=== PATIENT | male | born 1950 | race Caucasian/White ===

== ENCOUNTER 2018-12-10 17:12 | Inpatient (IN) | payer MEDICARE ==
[~2018-12-10] VITALS: Ht 172.7 cm; Wt 129.7 kg
--- OUTSIDE RECORDS SUMMARY | 2018-12-10 17:15 | XMS REPORT | Summary of Care ---
Author Author [facility] Address Unknown Phone Unavailable Encounter HQ [email or web address](FIN) [id number] Date(s): 03/06/16 - 03/06/16 [facility] [address] [facility], [address] [phone] Discharge Disposition: Home Attending Physician: Marilyn Braswell MD Vital Signs No data available for this section Problem List No data available for this section Allergies, Adverse Reactions, Alerts No data available for this section Medications No data available for this section Results No data available for this section Immunizations No data available for this section Procedures No data available for this section Social History No data available for this section Assessment and Plan No data available for this section
--- OUTSIDE RECORDS SUMMARY | 2018-12-10 17:16 | XMS REPORT | Summary of Care ---
Author Author Mary Cruz R.N. Unknown Address [facility] Phone Unavailable Care Team Providers Care Health Plan Advisor Name Role Phone EZEQUIEL SINCLAIR Unavailable Unavailable MONIKA Davis, ROSALVA Unavailable Unavailable DARRELL Davis, MYLES Unavailable Unavailable EUGENIO COLÓN [place], NICOLETTE Mckenzie Unavailable Unavailable EUGENIO Davis, NICOLETTE Unavailable Unavailable Nica COLÓN, Meghan Unavailable Unavailable Monika COLÓN, Rosalva Unavailable Unavailable Unavailable Unavailable Functional Status Name Dates Details Functional status health issues are not documented Status: Name Dates Details Cognitive status health issues are not documented Status: Problems Name Dates Details Testicular mass (608.89, N50.9) Status: Active Tinea corporis (110.5, B35.4) Status: Active Advance directive discussed with patient (V65.49, Z71.89) Status: Active Encounter for mini-mental status examination Status: Active Depression screening (V79.0, Z13.89) Status: Active At low risk for fall (V49.89, Z91.81) Status: Active Colonoscopy refused (V64.2, Z53.20) Status: Active Refused pneumococcal vaccine (V64.06, Z28.21) Status: Active Edema (782.3, R60.9) Status: Active Hospital discharge follow-up (V67.59, Z09) Status: Active Ischemic cardiomyopathy (414.8, I25.5) Status: Active Back muscle spasm (724.8, M62.830) Status: Active Morbid obesity (278.01, E66.01) Status: Active Status post myocardial infarction (412, I25.2) Status: Active Coronary artery disease (414.00, I25.10) Status: Active S/P coronary artery bypass graft x 4 (V45.81, Z95.1) Status: Active Open wound (879.8, T14.8XXA) Status: Active Aftercare following surgery (V58.89, Z48.89) Status: Active Pleural effusion (511.9, J90) Status: Active Hydrocele, left (603.9, N43.3) Status: Active Influenza vaccination declined (V64.06, Z28.21) Status: Active Pneumococcal vaccination declined (V64.06, Z28.21) Status: Active Diabetes mellitus (250.00, E11.9) Status: Active Laceration of lesser toe of left foot without damage to nail, foreign body presence unspecified, initial encounter (893.0, S91.115A) Status: Active HTN (hypertension) (401.9, I10) Status: Active Medications Name Dates Details Lancets Ultra Fine USE DIRECTED. Quantity: 100 RUEDA P.A., EZEQUIEL * Start : 11-Feb-2016 Active Aspirin 81 MG TABS TAKE 1 TABLET DAILY. * Quantity: 30 Refills: 0 RUEDA P.A., EZEQUIEL * Start : 14-Feb-2016 Active Atorvastatin Calcium 40 MG Oral Tablet TAKE 1 TABLET BY MOUTH EVERY DAYMUST HAVE VISIT * Quantity: 30 Refills: 5 MYLES RAMÍREZ M.D. * Start : 05-Jun-2016 Active DME Cardiac Rehab Phase II, 2 times a week, 36 sessionsDx.S/P PCI, CAD,LA,ISCHEMIC C ARDIOMYOPATHY * Quantity: 1 Refills: 0 MYLES RAMÍREZ M.D. * Start : 16-Jun-2016 Active Lisinopril 5 MG Oral Tablet TAKE 1 TABLET BY MOUTH AT BEDTIME * Quantity: 30 Refills: 5 MYLES RAMÍREZ M.D. * Start : 30-Jan-2017 Active Metoprolol Succinate ER 25 MG Oral Tablet Extended Release 24 Hour Take 1 tablet by mouth twice a day * Quantity: 60 Refills: 4 MYLES RAMÍREZ M.D. * Start : 10-Feb-2018 Active Clopidogrel Bisulfate 75 MG Oral Tablet TAKE 1 TABLET BY MOUTH EVERY DAY * Quantity: 30 Refills: 6 MYLES RAÍMREZ M.D. * Start : 16-Sep-2017 Active GlipiZIDE ER 5 MG Oral Tablet Extended Release 24 Hour TAKE 1 TABLET BY MOUTH DAILY WITH BREAKFAST * Quantity: 30 Refills: 3 ROSALVA FLORIAN M.D. * Start : 16-Apr-2017 Active BD Pen Needle Mini U/F 31G X 5 MM use as directed to inject insulin once daily * Quantity: 100 Refills: 1 MONIKA Davis, ROSALVA * Start : 16-Apr-2017 Active Bumetanide 1 MG Oral Tablet TAKE 3 TABLETS DAILY, 2 TABLETS IN THE MORNING AND 1 TABLET IN THEAFTERNOON * Quantity: 270 Refills: 3 MYLES RAMÍREZ M.D. * Start : 27-Apr-2017 Active Spironolactone 25 MG Oral Tablet TAKE 0.5 TABLET TWICE DAILY * Quantity: 30 Refills: 5 MYLES RAMÍREZ M.D. * Start : 27-Apr-2017 Active Tresiba FlexTouch 100 UNIT/ML Subcutaneous Solution Pen-injector inject 12 U SC once daily * Quantity: 1 Refills: 2 ROSALVA FLORIAN M.D. * Start : 15-Dec-2017 Active 5 x 3 ML Pen OneTouch Delica Lancets 33G check BG 2xs daily * Quantity: 100 Refills: 3 MONIKA Davis, ROSALVA * Start : 15-Dec-2017 Active OneTouch Verio In Vitro Strip check BG 2xs daily * Quantity: 100 Refills: 3 MONIKA Davis, ROSALVA * Start : 15-Dec-2017 Active Allergies and Adverse Reactions Name Dates Details No Known Allergies (Allergy) Status: Active Past Medical History Name Dates Details Coronary artery disease (414.00, I25.10) Status: Active HTN (hypertension) (401.9, I10) Status: Active Morbid obesity (278.01, E66.01) Status: Active S/P coronary artery bypass graft x 4 (V45.81, Z95.1) Status: Active Status post myocardial infarction (412, I25.2) Status: Active History of blood transfusion (V15.89, Z92.89) Status: Resolved Procedures Procedure Dates Details [QL] HEMOGLOBIN A1c Date: 15-Dec-2017 History of cardiac catheterization with stent placement Completed History of coronary artery bypass graft Completed History of hydrocele repair Completed Immunization Name Dates Details Immunizations not documented Family History Name Dates Details Family history of cardiac disorder (V17.49, Z82.49) Status: Active Name Dates Details Family history of cardiac disorder (V17.49, Z82.49) Status: Active Name Dates Details Family history of lung cancer (V16.1, Z80.1) Status: Active Family history of malignant neoplasm (V16.9, Z80.9) Status: Active Name Dates Details Family history of malignant neoplasm of brain (V16.8, Z80.8) Status: Active Family history of malignant neoplasm (V16.9, Z80.9) Status: Active Social History Name Dates Details - Status: Name Dates Details Never smoker Vital Signs Date Test Result Details No Known Vitals to report Results Date Description Value Details Results not documented Plan of Care Name Dates Details Planned Observations Planned Goals not documented Planned Encounters Appointment; ROSALVA FLORIAN M.D. On: 16-Mar-2018 10:00 Appointment; MYLES RAMÍREZ M.D. On: 28-Jun-2018 13:00 Instructions Name Dates Details Instructions not documented Encounters Appointment; EZEQUIEL RUEDA P.A. Encounter Diagnosis: Problem not documented On: 11-Feb-2016 9:30 Appointment; EZEQUIEL RUEDA P.A. Encounter Diagnosis: Problem not documented On: 14-Feb-2016 8:45 Appointment; KIARA BENJAMIN M.D. Encounter Diagnosis: Problem not documented On: 05-Mar-2016 12:30 Appointment; EZEQUIEL RUEDA P.A. Encounter Diagnosis: Problem not documented On: 13-Mar-2016 8:00 Appointment; EZEQUIEL RUEDA P.A. Encounter Diagnosis: Problem not documented On: 13-May-2016 8:00 Appointment; EDGARDO ALEXANDER P.A. Encounter Diagnosis: Problem not documented On: 10-Jun-2016 13:30 Appointment; MYLES RAMÍREZ M.D. Encounter Diagnosis: Problem not documented On: 16-Jun-2016 9:00 Appointment; MYLES RAMÍREZ M.D. Encounter Diagnosis: Problem not documented On: 21-Jul-2016 9:00 Appointment; EZEQUIEL RUEDA P.A. Encounter Diagnosis: Problem not documented On: 12-Aug-2016 8:00 Appointment; LEIGHANN PONCE Encounter Diagnosis: Problem not documented On: 08-Sep-2016 9:00 Appointment; MYLES RAMÍREZ M.D. Encounter Diagnosis: Problem not documented On: 08-Sep-2016 10:00 Appointment; EZEQUIEL RUEDA P.A. Encounter Diagnosis: Problem not documented On: 13-Nov-2016 9:00 Appointment; MYLES RAMÍREZ M.D. Encounter Diagnosis: Problem not documented On: 08-Dec-2016 9:00 Appointment; MEGHAN MCCLELLAND M.D. Encounter Diagnosis: Problem not documented On: 30-Jan-2017 10:30 Appointment; ROSE RICK M.D. Encounter Diagnosis: Problem not documented On: 02-Feb-2017 9:00 Appointment; ROSE RICK M.D. Encounter Diagnosis: Problem not documented On: 04-Feb-2017 8:30 Appointment; ROSE RICK M.D. Encounter Diagnosis: Problem not documented On: 06-Feb-2017 8:30 Appointment; EZEQUIEL RUEDA P.A. Encounter Diagnosis: Problem not documented On: 10-Feb-2017 9:00 Appointment; ROSE RICK M.D. Encounter Diagnosis: Problem not documented On: 13-Feb-2017 8:30 Appointment; MYLES RAMÍREZ M.D. Encounter Diagnosis: Problem not documented On: 16-Feb-2017 10:45 Appointment; ROSE RICK M.D. Encounter Diagnosis: Problem not documented On: 06-Mar-2017 9:45 Appointment; LEIGHANN PONCE Encounter Diagnosis: Problem not documented On: 30-Mar-2017 9:00 Appointment; MYLES RAMÍREZ M.D. Encounter Diagnosis: Problem not documented On: 30-Mar-2017 9:45 Appointment; ROSALVA FLORIAN M.D. Encounter Diagnosis: Problem not documented On: 16-Apr-2017 10:30 Appointment; MYLES RAMÍREZ M.D. Encounter Diagnosis: Problem not documented On: 27-Apr-2017 10:30 Appointment; MYLES RAMÍREZ M.D. Encounter Diagnosis: Problem not documented On: 25-May-2017 9:45 Appointment; EZEQUIEL RUEDA P.A. Encounter Diagnosis: Problem not documented On: 12-Aug-2017 10:15 Appointment; MYLES RAMÍREZ M.D. Encounter Diagnosis: Problem not documented On: 31-Aug-2017 9:30 Appointment; MYLES RAMÍREZ M.D. Encounter Diagnosis: Problem not documented On: 07-Sep-2017 11:15 Appointment; LEIGHANN PONCE Encounter Diagnosis: Problem not documented On: 14-Sep-2017 8:00 Appointment; ROSALVA FLORIAN M.D. Encounter Diagnosis: Problem not documented On: 15-Sep-2017 9:30 Appointment; ROSALVA FLORIAN M.D. Encounter Diagnosis: Problem not documented On: 15-Dec-2017 10:00 Appointment; MYLES RAMÍREZ M.D. Encounter Diagnosis: Problem not documented On: 28-Dec-2017 10:15 Appointment; EZEQUIEL RUEDA P.A. Encounter Diagnosis: Problem not documented On: 07-Jan-2018 9:15
--- OUTSIDE RECORDS SUMMARY | 2018-12-10 17:16 | XMS REPORT ---
Author Author Valarie Peraza Organization Unknown Address [address] [facility]. Phone Unavailable Care Team Providers Care Form Tamper Name Role Phone Dr. KAUR PILLAI Unavailable Unavailable Advance directives Directive Description Status Cardiopulmonary Resuscitation FULL CODE Verified By Medical Record Only Allergies Type Substance Reaction Status propensity to adverse reactions No active allergies found for Resident Problems Problem Effective Dates Problem Status E11.621 TYPE 2 DIABETES MELLITUS WITH FOOT ULCER 05/27/2018 Active I67.82 CEREBRAL ISCHEMIA 05/25/2018 Active E11.9 TYPE 2 DIABETES MELLITUS WITHOUT COMPLICATIONS 05/25/2018 Active I10 ESSENTIAL (PRIMARY) HYPERTENSION 05/25/2018 Active E66.9 OBESITY, UNSPECIFIED 05/25/2018 Active I25.10 ATHEROSCLEROTIC HEART DISEASE OF [place] CORONARY ARTERY WITHOUT ANGINA PECTORIS 05/25/2018 Active N28.9 DISORDER OF KIDNEY AND URETER, UNSPECIFIED 05/25/2018 Active Z89.421 ACQUIRED ABSENCE OF OTHER RIGHT TOE(S) 05/25/2018 Active L03.119 CELLULITIS OF UNSPECIFIED PART OF LIMB 05/25/2018 Active Medications Medication Dose Form Route Sig Text Dates Status Lovenox Solution 40 MG/0.4ML 40 mg Solution Subcutaneous 0.4 CC/ML SUBCUTANEOUSLY EVERY 12 HOURS (0.4ML=40MG) 05/28/2018 9:00:00 [place] Tablet 10-325 MG 1 tablet Tablet Oral Give 1 tablet by mouth every 6 hours as needed for Pain 05/27/2018 18:15:00 Toprol XL Tablet Extended Release 24 Hour 25 MG 1 tablet Tablet Extended Release 24 Hour Oral 1 TAB(S) BY MOUTH DAILY RELATED TO ESSENTIAL (PRIMARY) HYPERTENSION (I10) HOLD IF SBP<110 OR HR<60 05/28/2018 8:00:00 Ergocalciferol Capsule 87219 UNIT 1 capsule Capsule Oral 1 CAP(S) BY MOUTH DAILY EVERY 7 DAYS 05/29/2018 8:00:00 Tylenol Extra Strength Tablet 500 MG 1 tablet Tablet Oral Give 1 tablet by mouth every 4 hours as needed for Pain 05/27/2018 18:00:00 Lasix Tablet 40 MG 1 tablet Tablet Oral 1 TAB(S) BY MOUTH 2 TIMES A DAY DX EDEMA 05/28/2018 8:00:00 Lantus Solution 100 UNIT/ML 12 unit Solution Subcutaneous 12 UNIT(S) SUBCUTANEOUSLY DAILY 05/28/2018 8:00:00 Lipitor Tablet 40 MG 1 tablet Tablet Oral 1 TAB(S) BY MOUTH AT BEDTIME RELATED TO ATHEROSCLEROTIC HEART DISEASE OF [place] CORONARY ARTERY WITHOUT ANGINA PECTORIS (I25.10) 05/27/2018 20:00:00 GlipiZIDE XL Tablet Extended Release 24 Hour 5 MG 1 tablet Tablet Extended Release 24 Hour Oral 1 TAB(S) BY MOUTH DAILY RELATED TO TYPE-2 DIABETES MELLITUS WITHOUT COMPLICATIONS (E11.9) BEFORE BREAKFAST 05/28/2018 7:30:00 Spironolactone Tablet 25 MG 0.5 tablet Tablet Oral 0.5 TAB(S) BY MOUTH 2 TIMES A DAY FOR EDEMA (0.5TAB=12.5MG) 05/28/2018 8:00:00 Tuberculin PPD Solution 0.1 ml Solution Intradermal Inject 0.1 ml intradermally one time only for Prophylaxis for 1 Day Adm within first 24 hours of admission. Repeat yearly. 05/27/2018 18:30:00 05/28/2018 18:29:00 Completed Doxycycline Hyclate Tablet 100 MG 1 tablet Tablet Oral 1 TAB(S) BY MOUTH EVERY 12 HOURS FOR 14 DAYS 05/27/2018 20:00:00 06/10/2018 19:59:00 Cipro Tablet 500 MG 1 tablet Tablet Oral 1 TAB(S) BY MOUTH EVERY 12 HOURS FOR 14 DAYS 05/27/2018 20:00:00 06/10/2018 19:59:00 Results Date Test Result Interpretation Reference Range Status Notes Blood sugar 05/27/2018 18:37:00 Blood sugar 151.0 mmol/L 05/28/2018 13:07:00 Blood sugar 136.0 mmol/L 05/28/2018 17:17:00 Blood sugar 149.0 mmol/L 05/28/2018 21:42:17 Blood sugar 430.0 mmol/L 05/29/2018 11:29:00 Blood sugar 141.0 mmol/L 05/29/2018 17:01:04 Blood sugar 175.0 mmol/L 05/29/2018 21:20:04 Blood sugar 250.0 mmol/L 05/30/2018 8:06:57 Blood sugar 156.0 mmol/L 05/30/2018 12:01:21 Blood sugar 158.0 mmol/L 05/30/2018 16:30:05 Blood sugar 124.0 mmol/L 05/30/2018 20:51:28 Blood sugar 116.0 mmol/L 05/31/2018 8:20:56 Blood sugar 133.0 mmol/L 05/31/2018 12:10:46 Blood sugar 146.0 mmol/L 05/31/2018 18:50:58 Blood sugar 146.0 mmol/L 05/31/2018 19:51:59 Blood sugar 138.0 mmol/L 06/01/2018 8:26:08 Blood sugar 129.0 mmol/L 06/01/2018 12:13:20 Blood sugar 125.0 mmol/L 06/01/2018 16:13:34 Blood sugar 116.0 mmol/L 06/01/2018 20:49:07 Blood sugar 146.0 mmol/L 06/02/2018 8:30:55 Blood sugar 125.0 mmol/L Vital signs Description Observation Date PAIN LEVEL 0.0 {score} 05/27/2018 18:37:00 INTRAVASCULAR SYSTOLIC 104.0 mm[Hg] 05/27/2018 18:37:00 INTRAVASCULAR DIASTOLIC 68.0 mm[Hg] 05/27/2018 18:37:00 BODY TEMPERATURE 97.9 [degF] 05/27/2018 18:37:00 RESPIRATION RATE 18.0 /min 05/27/2018 18:37:00 HEART BEAT 84.0 {beats}/min 05/27/2018 18:37:00 OXYGEN SATURATION 98.0 % 05/27/2018 18:37:00 OXYGEN SATURATION 98.0 % 05/28/2018 4:56:00 RESPIRATION RATE 18.0 /min 05/28/2018 6:27:52 INTRAVASCULAR SYSTOLIC 117.0 mm[Hg] 05/28/2018 6:27:52 INTRAVASCULAR DIASTOLIC 78.0 mm[Hg] 05/28/2018 6:27:52 BODY TEMPERATURE 98.0 [degF] 05/28/2018 6:27:52 HEART BEAT 67.0 {beats}/min 05/28/2018 6:27:52 INTRAVASCULAR SYSTOLIC 125.0 mm[Hg] 05/28/2018 10:00:56 INTRAVASCULAR DIASTOLIC 70.0 mm[Hg] 05/28/2018 10:00:56 HEART BEAT 78.0 {beats}/min 05/28/2018 10:00:56 BODY WEIGHT (MEASURED) 275.2 [lb_av] 05/28/2018 11:43:00 BODY HEIGHT (MEASURED) 69.0 [in_i] 05/28/2018 11:43:00 RESPIRATION RATE 18.0 /min 05/28/2018 13:07:58 INTRAVASCULAR SYSTOLIC 130.0 mm[Hg] 05/28/2018 13:07:58 INTRAVASCULAR DIASTOLIC 82.0 mm[Hg] 05/28/2018 13:07:58 BODY TEMPERATURE 98.1 [degF] 05/28/2018 13:07:58 HEART BEAT 82.0 {beats}/min 05/28/2018 13:07:58 RESPIRATION RATE 18.0 /min 05/28/2018 21:42:38 INTRAVASCULAR SYSTOLIC 123.0 mm[Hg] 05/28/2018 21:42:38 INTRAVASCULAR DIASTOLIC 48.0 mm[Hg] 05/28/2018 21:42:38 BODY TEMPERATURE 98.2 [degF] 05/28/2018 21:42:38 HEART BEAT 70.0 {beats}/min 05/28/2018 21:42:38 RESPIRATION RATE 18.0 /min 05/29/2018 4:50:23 INTRAVASCULAR SYSTOLIC 112.0 mm[Hg] 05/29/2018 4:50:23 INTRAVASCULAR DIASTOLIC 58.0 mm[Hg] 05/29/2018 4:50:23 BODY TEMPERATURE 97.9 [degF] 05/29/2018 4:50:23 HEART BEAT 77.0 {beats}/min 05/29/2018 4:50:23 OXYGEN SATURATION 98.0 % 05/29/2018 4:57:00 INTRAVASCULAR SYSTOLIC 123.0 mm[Hg] 05/29/2018 11:33:37 INTRAVASCULAR DIASTOLIC 68.0 mm[Hg] 05/29/2018 11:33:37 HEART BEAT 66.0 {beats}/min 05/29/2018 11:33:37 RESPIRATION RATE 18.0 /min 05/29/2018 13:29:39 INTRAVASCULAR SYSTOLIC 123.0 mm[Hg] 05/29/2018 13:29:39 INTRAVASCULAR DIASTOLIC 68.0 mm[Hg] 05/29/2018 13:29:39 BODY TEMPERATURE 98.2 [degF] 05/29/2018 13:29:39 HEART BEAT 66.0 {beats}/min 05/29/2018 13:29:39 RESPIRATION RATE 17.0 /min 05/29/2018 22:04:52 INTRAVASCULAR SYSTOLIC 131.0 mm[Hg] 05/29/2018 22:04:52 INTRAVASCULAR DIASTOLIC 69.0 mm[Hg] 05/29/2018 22:04:52 BODY TEMPERATURE 98.4 [degF] 05/29/2018 22:04:52 HEART BEAT 72.0 {beats}/min 05/29/2018 22:04:52 RESPIRATION RATE 17.0 /min 05/30/2018 1:26:17 INTRAVASCULAR SYSTOLIC 131.0 mm[Hg] 05/30/2018 1:26:17 INTRAVASCULAR DIASTOLIC 62.0 mm[Hg] 05/30/2018 1:26:17 BODY TEMPERATURE 98.1 [degF] 05/30/2018 1:26:17 HEART BEAT 70.0 {beats}/min 05/30/2018 1:26:17 INTRAVASCULAR SYSTOLIC 156.0 mm[Hg] 05/30/2018 9:22:56 INTRAVASCULAR DIASTOLIC 91.0 mm[Hg] 05/30/2018 9:22:56 HEART BEAT 85.0 {beats}/min 05/30/2018 9:22:56 RESPIRATION RATE 18.0 /min 05/30/2018 10:59:57 INTRAVASCULAR SYSTOLIC 156.0 mm[Hg] 05/30/2018 10:59:57 INTRAVASCULAR DIASTOLIC 91.0 mm[Hg] 05/30/2018 10:59:57 BODY TEMPERATURE 97.6 [degF] 05/30/2018 10:59:57 HEART BEAT 85.0 {beats}/min 05/30/2018 10:59:57 RESPIRATION RATE 17.0 /min 05/30/2018 17:37:47 INTRAVASCULAR SYSTOLIC 162.0 mm[Hg] 05/30/2018 17:37:47 INTRAVASCULAR DIASTOLIC 92.0 mm[Hg] 05/30/2018 17:37:47 BODY TEMPERATURE 97.8 [degF] 05/30/2018 17:37:47 HEART BEAT 79.0 {beats}/min 05/30/2018 17:37:47 OXYGEN SATURATION 96.0 % 05/31/2018 0:41:00 RESPIRATION RATE 18.0 /min 05/31/2018 1:08:44 INTRAVASCULAR SYSTOLIC 128.0 mm[Hg] 05/31/2018 1:08:44 INTRAVASCULAR DIASTOLIC 76.0 mm[Hg] 05/31/2018 1:08:44 BODY TEMPERATURE 97.6 [degF] 05/31/2018 1:08:44 HEART BEAT 84.0 {beats}/min 05/31/2018 1:08:44 INTRAVASCULAR SYSTOLIC 166.0 mm[Hg] 05/31/2018 10:53:00 INTRAVASCULAR DIASTOLIC 80.0 mm[Hg] 05/31/2018 10:53:00 HEART BEAT 87.0 {beats}/min 05/31/2018 10:53:00 RESPIRATION RATE 17.0 /min 05/31/2018 11:57:10 INTRAVASCULAR SYSTOLIC 166.0 mm[Hg] 05/31/2018 11:57:10 INTRAVASCULAR DIASTOLIC 80.0 mm[Hg] 05/31/2018 11:57:10 BODY TEMPERATURE 98.3 [degF] 05/31/2018 11:57:10 HEART BEAT 87.0 {beats}/min 05/31/2018 11:57:10 INTRAVASCULAR SYSTOLIC 130.0 mm[Hg] 05/31/2018 17:41:00 INTRAVASCULAR DIASTOLIC 67.0 mm[Hg] 05/31/2018 17:41:00 BODY TEMPERATURE 97.2 [degF] 05/31/2018 17:41:00 RESPIRATION RATE 18.0 /min 05/31/2018 17:41:00 HEART BEAT 62.0 {beats}/min 05/31/2018 17:41:00 OXYGEN SATURATION 94.0 % 05/31/2018 17:41:00 RESPIRATION RATE 18.0 /min 05/31/2018 19:06:58 INTRAVASCULAR SYSTOLIC 136.0 mm[Hg] 05/31/2018 19:06:58 INTRAVASCULAR DIASTOLIC 67.0 mm[Hg] 05/31/2018 19:06:58 BODY TEMPERATURE 97.2 [degF] 05/31/2018 19:06:58 HEART BEAT 62.0 {beats}/min 05/31/2018 19:06:58 RESPIRATION RATE 18.0 /min 06/01/2018 3:14:51 INTRAVASCULAR SYSTOLIC 123.0 mm[Hg] 06/01/2018 3:14:51 INTRAVASCULAR DIASTOLIC 71.0 mm[Hg] 06/01/2018 3:14:51 BODY TEMPERATURE 97.7 [degF] 06/01/2018 3:14:51 HEART BEAT 78.0 {beats}/min 06/01/2018 3:14:51 OXYGEN SATURATION 95.0 % 06/01/2018 3:19:00 INTRAVASCULAR SYSTOLIC 119.0 mm[Hg] 06/01/2018 10:49:28 INTRAVASCULAR DIASTOLIC 71.0 mm[Hg] 06/01/2018 10:49:28 HEART BEAT 78.0 {beats}/min 06/01/2018 10:49:28 RESPIRATION RATE 18.0 /min 06/01/2018 13:21:14 INTRAVASCULAR SYSTOLIC 120.0 mm[Hg] 06/01/2018 13:21:14 INTRAVASCULAR DIASTOLIC 82.0 mm[Hg] 06/01/2018 13:21:14 BODY TEMPERATURE 98.3 [degF] 06/01/2018 13:21:14 HEART BEAT 81.0 {beats}/min 06/01/2018 13:21:14 RESPIRATION RATE 18.0 /min 06/01/2018 18:05:58 INTRAVASCULAR SYSTOLIC 163.0 mm[Hg] 06/01/2018 18:05:58 INTRAVASCULAR DIASTOLIC 91.0 mm[Hg] 06/01/2018 18:05:58 BODY TEMPERATURE 98.6 [degF] 06/01/2018 18:05:58 HEART BEAT 80.0 {beats}/min 06/01/2018 18:05:58 RESPIRATION RATE 18.0 /min 06/02/2018 2:26:59 INTRAVASCULAR SYSTOLIC 115.0 mm[Hg] 06/02/2018 2:26:59 INTRAVASCULAR DIASTOLIC 64.0 mm[Hg] 06/02/2018 2:26:59 BODY TEMPERATURE 98.9 [degF] 06/02/2018 2:26:59 HEART BEAT 72.0 {beats}/min 06/02/2018 2:26:59 OXYGEN SATURATION 96.0 % 06/02/2018 3:14:00 Immunizations Vaccine Date Status Reason Influenza, seasonal, injectable 05/28/2018 Refused Family Refused pneumococcal polysaccharide vaccine, 23 valent 05/28/2018 Refused Family Refused tuberculin skin test; purified protein derivative solution, intradermal 05/27/2018 Completed Social History Smoking Status Start Date End Date Unknown if ever smoked 06/02/2018 19:30:00
--- NOTE | 2018-12-10 18:10 | NUR ---
VU ROONEY AND DR. FITZPATRICK IN TO EVAL PT DURING TRIAGE.
[2018-12-10] MEDS ORDERED: ERTAPENEM 1GM/NS 100ML 100 ML IV SCH (18:15)
[2018-12-10 18:26] LABS: BASOPHILS % 0.2 % (0.0-1.0); EOSINOPHILS # (AUTO) 0.1 (0.0-0.4); EOSINOPHILS % 1.4 % (0.0-6.0); HEMATOCRIT 35.3 % (38.2-49.6); HEMOGLOBIN 11.7 g/dL (14.0-18.0); LYMPHOCYTES # (AUTO) 1.8 (1.0-3.2); MEAN CORPUSCULAR HGB CONC 33.1 g/dL (31-35); MEAN CORPUSCULAR VOLUME 87.6 fL (81-99); MONOCYTES # (AUTO) 0.5 (0.2-0.8); MONOCYTES % 6.4 % (4.4-11.3); NEUTROPHILS # (AUTO) 5.9 (2.1-6.9); NEUTROPHILS % 70.8 % (38.7-80.0); PLATELET COUNT 137 x10e3/uL (140-360); RED BLOOD COUNT 4.03 x10e6/uL (4.3-5.7); RED CELL DISTRIBUTION WIDTH 12.3 % (11.7-14.4)
[2018-12-10 18:47] LABS: CALCIUM 9.3 mg/dL (8.4-10.2); CREATININE, SERUM 1.64 mg/dL (0.72-1.25)
[2018-12-10] MEDS ORDERED: SODIUM CHLORIDE FLUSH 10 ML SYR INJ PRN (19:45)
[2018-12-10] MEDS ORDERED: BUMETANIDE1 MG PO (23:04)
[2018-12-10] MEDS ORDERED: METOPROLOL SUCC25 MG PO (23:04)
[2018-12-10] MEDS ORDERED: LISINOPRIL5 MG PO (23:04)
[2018-12-10] MEDS ORDERED: ASPIR 8181 MG PO (23:04)
[2018-12-10] MEDS ORDERED: SPIRONOLACTONE25 MG PO (23:04)
[2018-12-10] MEDS ORDERED: ATORVASTATIN CA40 MG PO (23:04)
[2018-12-10] MEDS ORDERED: TRESIBA SC (23:04)
[2018-12-10] MEDS ORDERED: GLIPIZIDE ER5 MG PO (23:04)
[2018-12-11] VITALS (9 sets, daily range): BP systolic 99–138; BP diastolic 49–73
--- NOTE | 2018-12-11 00:30 | NUR ---
patient recieved to room 289 via stretcher from the er. vss. no c/o pain noted. dressing to left foot removed to assess wound on left foot. admit assessment and history obtained. patient instructed to call for assistance when needed.
[2018-12-11 06:05] LABS: BASOPHILS % 0.3 % (0.0-1.0); EOSINOPHILS # (AUTO) 0.1 (0.0-0.4); EOSINOPHILS % 1.6 % (0.0-6.0); HEMATOCRIT 30.6 % (38.2-49.6); HEMOGLOBIN 9.9 g/dL (14.0-18.0); LYMPHOCYTES % 32.5 % (18.0-39.1); MEAN CORPUSCULAR HGB CONC 32.4 g/dL (31-35); MEAN CORPUSCULAR VOLUME 86.7 fL (81-99); MONOCYTES # (AUTO) 0.5 (0.2-0.8); MONOCYTES % 7.9 % (4.4-11.3); NEUTROPHILS # (AUTO) 3.5 (2.1-6.9); NEUTROPHILS % 57.5 % (38.7-80.0); PLATELET COUNT 106 x10e3/uL (140-360); RED BLOOD COUNT 3.53 x10e6/uL (4.3-5.7); RED CELL DISTRIBUTION WIDTH 12.3 % (11.7-14.4)
[2018-12-11 06:30] LABS: ANION GAP 10.5 mmol/L (8-16); CALCIUM 8.5 mg/dL (8.4-10.2); CREATININE, SERUM 1.39 mg/dL (0.72-1.25); POTASSIUM 4.5 mmol/L (3.5-5.1)
[2018-12-11] MEDS ORDERED: DEXTROSE 50% SYRINGE 50 ML IV PRN (10:00)
[2018-12-11] MEDS ORDERED: SODIUM CHLORIDE 0.9% 250ML 250 ML ONE (10:47)
[2018-12-11] MEDS: DOXYCYCLINE HYCLATE TABLET 100 MG TAB PO SCH ×2 (11:02→16:52)
[2018-12-11] MEDS: PIPER-TAZ 3.375 GM 50 ML IV SCH ×2 (11:02→17:47)
--- NOTE | 2018-12-11 11:15 | History and Physical ---
The patient is in observation. PRIMARY CARE PROVIDER: Dr. Chelly Mims. PUBLIC [employer] SALES MARKETING: Dr. Nima Corrigan. CHIEF COMPLAINT: Left infected diabetic foot ulcer. HISTORY: A 68-year-old male with infected left diabetic foot ulcer along the plantar surface of the 5th toe. The patient could not recall the time that it occurred but he did see Dr. Nima Corrigan who subsequently sent him to the emergency room for admission for IV antibiotics. Workup is still pending at this time. PAST MEDICAL HISTORY: Diabetes type 2 on insulin, oral hypoglycemic medication, dyslipidemia, chronic anemia, history of kidney stone, coronary artery disease with previous bypass surgery, multiple stents previously, diabetes type 2, hypertension. PAST SURGICAL HISTORY: Coronary stent and then subsequent coronary artery bypass graft surgery, right 2nd toe amputation, peripheral vascular disease. SOCIAL HISTORY: Patient does not smoke or use alcohol. No recreational drugs. ALLERGIES: TO NO KNOWN ALLERGIES. HOME MEDICATIONS: List is reviewed. REVIEW OF SYSTEMS: Left diabetic foot ulcer pain. PHYSICAL EXAMINATION VITAL SIGNS: Temperature is 98, blood pressure 122/58, pulse rate 73, respirations 18. GENERAL: The patient is in no acute distress. He is awake. HEENT: Normocephalic, atraumatic, anicteric. NECK: Supple grossly. PULMONARY: Clear. CARDIOVASCULAR: Regular rate and rhythm. ABDOMEN: Soft, obese. EXTREMITIES: Left infected diabetic foot ulcer along the plantar surface of the lateral 5th toe area. No drainage. It is dry. There is some redness but no pus or discharge. NEUROLOGIC: Diabetic neuropathy but moving all extremities. LABORATORY: Sodium is 140, potassium 4.5, chloride 110, bicarb 24, BUN is 37, creatinine 1.39, glucose 108. WBC is 6.07, hemoglobin 9.9, hematocrit 30.6, and platelets 106. IMPRESSION: 1. Infected left diabetic foot ulcer. The wound looks dry and clean. There is some surrounding erythema but no drainage. 2. Baseline diabetes type 2 on insulin and oral medications. 3. Coronary artery disease with previous bypass surgery. 4. Morbidly obese. 5. Hypertension. PLAN: MRI of the left foot without contrast since the patient had creatinine of 1.4. Obtain sed rate. Zosyn IV and doxycycline orally. Consultation with Dr. Nima Corrigan. Wound care. We will monitor the patient closely. Job#: [id number] [facility]
[2018-12-11] MEDS: INSULIN LISPRO 100 UNIT/1 ML 3ML VIAL SQ SCH ×4 (13:10→20:47)
--- NOTE | 2018-12-11 13:37 | NUR ---
SOCIAL WORK INITIAL ASSESSMENT Ecommerce Project Manager to bedside to discuss plan of care with patient/family. CM/SW role and care transitions discussed. Anticipated discharge plan discussed along with duration of care. CM/SW discussed patients right to make decisions in care. CM/SW work hours given. Patient lives: IN OWN HOUSE WITH DOG Admit/Transfer: VIA ED FROM HOME POA/Emergency contact: CARISSA [phone] Current/Previous Home Health: HAS BUT CANNOT REMEMBER NAME WILL CALL CM PHONE TO LEAVE ON VOICEMAIL. STATES THEY COME TO DO WOUND CARE 7 DAYS A WEEK PCP/Follow-up Care: EUGENIO Current/Previous DME: GREY Other Services: NONE Employment Status: RETIRED Areas of Concerns: NONE Referral Needs: NONE Education Needs: NONE IMM/ESPINAL given and signed (if applicable): ESPINAL Goal for discharge: RETURN HOME INDEPENDENTLY CM/SW left business card at the bedside with contact information. Name and number was also written on the patients whiteboard. Patient verbalized understanding of discussion. CM will follow-up with ongoing discharge and transition of care needs.
--- NOTE | 2018-12-11 14:22 | Diagnostic Imaging Report ---
TECHNIQUE: Magnetic resonance imaging of the LEFT foot (forefoot) was performed WITHOUT injected contrast. HISTORY: diabetic foot ulcer, left fifth toe COMPARISON: None available. DISCUSSION: Bone: Bone marrow edema and confluent decreased fatty marrow signal involving the head of the fifth metatarsal bone, at the plantar aspect greater than the dorsal aspect. Joints: No dislocation. No effusion. Soft Tissues: Regional soft tissue edema. Apparent soft tissue defect at the plantar aspect of the foot near the fifth metatarsal head. IMPRESSION: Osteomyelitis involving the head of the fifth metatarsal bone. Signed by: Dr. Hayden Alejandre D.O., M.M.M. on 12/11/2018 2:19 PM
[2018-12-11] MEDS: SPIRONOLACTONE 25 MG TAB PO SCH (16:52)
[2018-12-11] MEDS: BUMETANIDE 1 MG TAB PO SCH (16:52)
[2018-12-11] MEDS: METOPROLOL SUCCINATE 25 MG TAB XL PO SCH (16:52)
--- NOTE | 2018-12-11 18:11 | NUR ---
PT LYING COMFORTABLE IN BED, DENIES PAIN , NO DISTRESS NOTED CONTINUE WITH IV ANTIBIOTICS. SAFETY MAINTAINED
--- NOTE | 2018-12-11 19:10 | NUR ---
REPORT RECEIVED FROM OFF GOING NURSE, PT RESTING IN BED ALERT AND ORIENTED, NO DISTRESS NOTED, DENIES NEEDS, CALL LIGHT IN REACH, INSTRUCTED TO CALL WITH NEEDS
[2018-12-11] MEDS ORDERED: LISINOPRIL 2.5 MG TAB PO SCH (21:00)
[2018-12-12] VITALS (8 sets, daily range): BP systolic 102–121; BP diastolic 52–77
[2018-12-12] MEDS: PIPER-TAZ 3.375 GM 50 ML IV SCH ×3 (00:21→12:25)
--- NOTE | 2018-12-12 05:30 | NUR ---
PT RESTING IN BED ALERT AND ORIENTED, NO DISTRESS NOTED, DENIES NEEDS, CALL LIGHT IN REACH, INSTRUCTED TO CALL WITH NEEDS
[2018-12-12] MEDS: ASPIRIN 81 MG CHEW TAB PO SCH (08:55)
[2018-12-12] MEDS: ATORVASTATIN 40 MG TAB PO SCH (08:55)
[2018-12-12] MEDS: DOXYCYCLINE HYCLATE TABLET 100 MG TAB PO SCH (08:55)
[2018-12-12] MEDS: INSULIN LISPRO 100 UNIT/1 ML 3ML VIAL SQ SCH ×4 (08:55→22:30)
[2018-12-12] MEDS: GLIPIZIDE 5 MG TAB ER PO SCH (08:55)
[2018-12-12] MEDS: BUMETANIDE 1 MG TAB PO SCH (08:55)
[2018-12-12] MEDS: TRESIBA SC SCH (08:56)
[2018-12-12] MEDS: SPIRONOLACTONE 25 MG TAB PO SCH (09:00)
[2018-12-12] MEDS: METOPROLOL SUCCINATE 25 MG TAB XL PO SCH (09:00)
--- NOTE | 2018-12-12 10:47 | NUR ---
DR. SULLIVAN ORDERED TO HOLD BLOOD PRESSURE MEDICATIONS DUE TO B/P 103/52. PT IN BED DENIES ANY DIZZINESS OR PAIN
[2018-12-12] MEDS: VANCOMYCIN 750MG/NS 150ML IVPB 150 ML IV SCH ×2 (11:10→22:50)
[2018-12-12] MEDS ORDERED: POVIDONE IODINE 10% 120 ML BTL EXT ONE (13:00)
--- NOTE | 2018-12-12 15:19 | Consultation ---
DATE OF CONSULTATION: December 12, 2018 CONSULTED FOR: Left foot infected diabetic ulceration with possible osteomyelitis. HISTORY OF PRESENT ILLNESS: This is a 68-year-old male who presented for worsening infection and pain to the left foot ulceration who was seen in clinic by Dr. Corrigan. Dr. Corrigan recommended him to go to the ER for further evaluation and treatment of the pathology. PAST MEDICAL HISTORY: Significant for hyperlipidemia, chronic anemia, history of kidney stones, coronary artery disease with previous bypass surgery, multiple stents previously, diabetes mellitus type 2, and hypertension. SURGICAL HISTORY: Significant for recent amputation of digit of the right foot, coronary stent placement with subsequent coronary artery bypass graft surgery. SOCIAL HISTORY: Patient denies any tobacco, alcohol, or illicit drug abuse at this point. ALLERGIES: NO KNOWN DRUG ALLERGIES. HOME MEDICATIONS: See JAN. REVIEW OF SYSTEMS: Other than the left diabetic foot ulcer pain negative. PHYSICAL EXAMINATION GENERAL: Patient was seen, lying in bed, in no acute distress. VITAL SIGNS: Reviewed. HEENT: Head normocephalic. CHEST: Denies any chest pain. LUNGS: Denies any shortness of breath. ABDOMEN: Soft, nontender. LOWER EXTREMITIES: Reduce pulses noted to the posterior tibial pulse of the left lower extremity. Dorsalis pedis pulse is palpable; however, it is diminished. There is significant edema and erythema noted to the left foot. There is a full-thicken ulceration noted to the plantar aspect of the left fifth metatarsophalangeal joint. Erythema and proximal streaking is noted; however, there is minimal pain on palpation and minimal pain with range of motion of the fifth metatarsophalangeal joint. The ulceration does probe to bone. There is significant necrosis noted in the wound bed as well. The wound measures approximately 1.5 cm annular lesion. There is negative undermining or tunneling at this time. LABS: Reviewed. MRI was reviewed which does show osteomyelitis of the right fifth digit and the head of the fifth metatarsal bone. IMPRESSION 1. Left foot osteomyelitis with limb threatening diabetic infection of the left foot. 2. Diabetes mellitus with peripheral neuropathy. 3. Possible peripheral arterial disease. 4. Coronary artery disease. PLAN: From podiatry standpoint, we will begin Betadine wet-to-dry dressing. I have recommended arterial Doppler studies to rule out any underlying peripheral arterial disease. Dr. Corrigan will continue to follow the patient starting tomorrow. Thank you again for including us in the care of this patient. Job#: [id number] ISACC
--- NOTE | 2018-12-12 18:28 | NUR ---
PT IN BED RESTING, CONTINUES WITH IV ANTIBIOTICS, DENIES PAIN, NO DISTRESS NOTED. IV STARTED ON RT HAND. TOLERATED WELL
--- NOTE | 2018-12-12 19:05 | NUR ---
Completed bedside rounds with morning nurse. Pt alert to name. Lying in bed 30 degrees. Denies pain or discomfort. Call mccauley within reach. Will continue to monitor.
--- NOTE | 2018-12-12 21:00 | NUR ---
D/C 20 IV left AC, pt tolerated well.
[2018-12-13] VITALS (7 sets, daily range): BP systolic 106–144; BP diastolic 58–72
[2018-12-13] MEDS: PIPER-TAZ 3.375 GM 50 ML IV SCH ×4 (00:20→17:43)
--- NOTE | 2018-12-13 07:15 | NUR ---
RECEIVED PATIENT RESTING IN BED. NO ACUTE DISTRESS NOTED. NO C/O PAIN AT THIS TIME. CALL LIGHT WITHIN REACH. BED IN THE LOWEST POSITION.
[2018-12-13] MEDS: INSULIN LISPRO 100 UNIT/1 ML 3ML VIAL SQ SCH ×4 (07:30→22:30)
[2018-12-13] MEDS: DOXYCYCLINE HYCLATE TABLET 100 MG TAB PO SCH ×2 (08:35→17:05)
[2018-12-13] MEDS: BUMETANIDE 1 MG TAB PO SCH ×2 (08:35→17:05)
[2018-12-13] MEDS: SPIRONOLACTONE 25 MG TAB PO SCH ×2 (08:35→17:05)
[2018-12-13] MEDS: ASPIRIN 81 MG CHEW TAB PO SCH (08:36)
[2018-12-13] MEDS: LOSARTAN POTASSIUM 25 MG TAB PO SCH (08:37)
[2018-12-13] MEDS: GLIPIZIDE 5 MG TAB ER PO SCH (08:39)
[2018-12-13] MEDS: ATORVASTATIN 40 MG TAB PO SCH (08:39)
[2018-12-13] MEDS: TRESIBA SC SCH (08:39)
--- NOTE | 2018-12-13 10:00 | NUR ---
WOUND CARE CONSULT - INITIAL EVALUATION -Patient was admitted from Home to ER for worsening left foot wound. -DX: Left Foot DFU with Osteomyelitis. -HX: DM, CAD, Neuropathy, HTN, Chronic Anemia, Right Foot 2nd Toe Amputation, DM - IV ABX in Progress - Noted pt Visit by Dr. Jonna Alva DPM covering for Dr. Corrigan - Betadine WTD Dressings have been ordered - BS 21 - Ambulates to Toileting - [employer] LABS: WBC6.07 HGB9.9 HCT30.6 [id number] on File. IMAGING: US LLE - Results Pending MRI - L FOOT - OM+ involving 5th Met Head + Soft Tissue Edema VISIT: - Patient calm AAOx4 - Verbalizes admission for Left Foot Wound - States he is not able to reach feet. Unable to treat self. - Has family member that assists at home with care. - Noted dressing to left foot dry and intact. Dressing removed. - Site 90% soft eschar/ boggy with wound (2x2x0.4cm) probing to bone. - slight erythema noted to surrounding tissue at dorsal aspect of foot - pedal pulses palpable but weak - Pt states RLE was previous vein donor site for bypass " They took out some veins". - Slight cloudy drainage expressed. - no cultures noted on chart, none sent. Pt has been on IV ABX for few days. May yield false neg results if done now. - Pt states Dr. Corrigan to evaluate for possible debridement vs removal of 5th metatarsal bone. - Deep Culture can be performed at time of sx intervention. IMPRESSION: - Left Foot 5th met head - DFU Grade 3 - (2x2x0.4cm) - probes to bone. - Right Heel - Fissure -(5x0.1 cm) Dry Thickened Skin. RECOMMENDATION: 1. - Left Foot 5th met head - DFU Grade 3 - Continue Current Treatment Plan per Dr. Corrigan. ( Betadine Wet To Dry Dressings ) 2. - Right Heel -Fissure- Wash Foot with Mild Soap and Water, Pat Dry and Apply LAC-HYDRIN Lotion BID. 3. - Encourage patient to Turn and Reposition q2h. Thank you for consulting with Wound Care. Addendum: 12/13/18 at 1033 by Duane Christine RN Amended: Links added.
[2018-12-13] MEDS: VANCOMYCIN 750MG/NS 150ML IVPB 150 ML IV SCH ×2 (10:30→22:30)
--- NOTE | 2018-12-13 13:45 | NUR ---
Nutrition Screen Note RD Recommendation for Physician: -Continue ADA diet as ordered -Offered diet education but pt was not interested Plan of Care: RD following, monitoring for tolerance and adequacy Nutrition reason for involvement: Nutrition Risk Trigger MST Primary Diagnose(s): 1. Left foot osteomyelitis with limb threatening diabetic infection of the left foot. 2. Diabetes mellitus with peripheral neuropathy. 3. Possible peripheral arterial disease. PMH: DM, CAD, Neuropathy, HTN, Chronic Anemia, Right Foot 2nd Toe Amputation Ht: 68in Wt: 289lb BMI: 43.9kg/m2 IBW: 154lb RD Assessment: (12/13) Chart reviewed. Labs and meds reviewed. 68yo M, who is admitted for left infected diabetic foot ulcer. HbA1c is at 6.5%. Visited pt in the room. Pt reports good appetite with ~50-100% recorded meal intake since admission. No recent weight loss reported. No GI complains noted. LBM- 12/13, normal per pt. No chewing or swallowing difficulty noted. Pt is well-educated by (who is a RN) on diabetic diet. Pt is not interested in any further education. Will continue to monitor and follow. Current Diet: ADA diet Malnutrition Evaluation (12/13) The patient does not meet criteria for a specified degree of malnutrition at this time. Will re-evaluate at follow-up as appropriate. Diet Education Needs Assessment: Diet education indicated, pt is not interested. Nutrition Care Level: low Signed: Jory Molina, MS, RD, LD
--- NOTE | 2018-12-13 14:43 | NUR ---
CALLED DR. SULLIVAN TO CLARIFY ORDER FOR UNILATERAL ARTERIAL DOPPLER. PATIENT HAD BILATERAL ARTERIAL DOPPLER YESTERDAY. NO ANSWER, LVM
[2018-12-13] MEDS: AMMONIUM LACTATE 12% LOTION 225GM BTL TOP SCH (17:06)
--- NOTE | 2018-12-13 19:14 | NUR ---
PT IS RESTING IN BED. NO RESPIRATORY DISTRESS NOTED. BED IN LOWEST POSITION, LOCKED, AND CALL LIGHT WITHIN REACH. WILL CONTINUE TO MONITOR.
--- NOTE | 2018-12-13 19:36 | NUR ---
REPORT GIVEN TO ONCOMING NURSE, PATIENT IS RESTING IN BED. RESPIRATIONS EVEN AND UNLABORED, NO ACUTE DISTRESS NOTED. CALL LIGHT WITHIN REACH. BED IN THE LOWEST POSITION.
[2018-12-13] MEDS: METOPROLOL SUCCINATE 25 MG TAB XL PO SCH (22:30)
[2018-12-13] MEDS ORDERED: SODIUM CHLORIDE 0.9% 250ML 250 ML ONE (23:22)
[2018-12-14] VITALS (9 sets, daily range): BP systolic 112–144; BP diastolic 57–80
[2018-12-14] MEDS: PIPER-TAZ 3.375 GM 50 ML IV SCH ×4 (00:17→17:34)
--- NOTE | 2018-12-14 07:02 | NUR ---
RECEIVED PATIENT RESTING IN BED. RESPIRATIONS EVEN AND UNLABORED, NO ACUTE DISTRESS NOTED. DENIES PAIN OR DISCOMFORT AT THIS TIME. CALL LIGHT WITHIN REACH. BED IN THE LOWEST POSITION. BED ALARM ON.
[2018-12-14] MEDS: INSULIN LISPRO 100 UNIT/1 ML 3ML VIAL SQ SCH ×4 (07:30→20:58)
[2018-12-14] MEDS: ASPIRIN 81 MG CHEW TAB PO SCH (08:47)
[2018-12-14] MEDS: LOSARTAN POTASSIUM 25 MG TAB PO SCH (08:47)
[2018-12-14] MEDS: DOXYCYCLINE HYCLATE TABLET 100 MG TAB PO SCH ×2 (08:47→17:33)
[2018-12-14] MEDS: BUMETANIDE 1 MG TAB PO SCH ×2 (08:47→17:33)
[2018-12-14] MEDS: ATORVASTATIN 40 MG TAB PO SCH (08:47)
[2018-12-14] MEDS: TRESIBA SC SCH (08:47)
[2018-12-14] MEDS: GLIPIZIDE 5 MG TAB ER PO SCH (08:47)
[2018-12-14] MEDS: SPIRONOLACTONE 25 MG TAB PO SCH ×2 (08:47→17:33)
[2018-12-14] MEDS: AMMONIUM LACTATE 12% LOTION 225GM BTL TOP SCH ×2 (09:35→17:33)
[2018-12-14] MEDS: VANCOMYCIN 750MG/NS 150ML IVPB 150 ML IV SCH (10:06)
[2018-12-14 13:30] LABS: BASOPHILS % 0.3 % (0.0-1.0); EOSINOPHILS # (AUTO) 0.1 (0.0-0.4); EOSINOPHILS % 1.9 % (0.0-6.0); HEMATOCRIT 34.3 % (38.2-49.6); HEMOGLOBIN 11.1 g/dL (14.0-18.0); LYMPHOCYTES # (AUTO) 1.8 (1.0-3.2); LYMPHOCYTES % 25.4 % (18.0-39.1); MEAN CORPUSCULAR HEMOGLOBIN 28.7 pg (28-32); MEAN CORPUSCULAR HGB CONC 32.4 g/dL (31-35); MEAN CORPUSCULAR VOLUME 88.6 fL (81-99); MONOCYTES # (AUTO) 0.4 (0.2-0.8); NEUTROPHILS # (AUTO) 4.6 (2.1-6.9); PLATELET COUNT 126 x10e3/uL (140-360); RED BLOOD COUNT 3.87 x10e6/uL (4.3-5.7); RED CELL DISTRIBUTION WIDTH 12.3 % (11.7-14.4)
[2018-12-14 13:45] LABS: INR 1.08
[2018-12-14 13:48] LABS: ALBUMIN 2.8 g/dL (3.5-5.0); ALBUMIN/GLOBULIN RATIO 0.7 (0.8-2.0); ANION GAP 13.6 mmol/L (8-16); CALCIUM 8.4 mg/dL (8.4-10.2); CREATININE, SERUM 1.89 mg/dL (0.72-1.25); POTASSIUM 4.6 mmol/L (3.5-5.1)
--- NOTE | 2018-12-14 14:24 | NUR ---
CM CALLED TO ROOM BY PT AND PT'S DAUGHTER THEY ARE CONCERNED ABOUT DR HERNANDEZ WANTING PT TO GO TO AN LTAC AND DR SULLIVAN WANTING PT TO GO HOME WITH IV ABX, WOUND CARE AND HYPERBARICS PT STATES THAT DR HERNANDEZ TOLD HIM THAT IF HE DID NOT GO TO AN LTAC HE WOULD FIRE HIM A PT CM CALLED DR SULLIVAN AND EXPLAINED THAT PT, DR HERNANDEZ AND DTR WISH PT TO BE EVALUATED FOR AN LTAC CHOICE LETTER SIGNED FOR [facility] YAQUELIN MCDONALD WITH [facility] NOTIFIED OF CONSULT
--- NOTE | 2018-12-14 15:00 | NUR ---
REPORT CALLED TO TOMASZ NEELY AT [facility] AT THIS TIME. Addendum: 12/14/18 at 1734 by BRINA LANDIS RN WRONG ENTRY
--- NOTE | 2018-12-14 15:06 | Diagnostic Imaging Report ---
EXAMINATION: CHEST XRAY LINE PLACEMENT INDICATION: PICC line placement COMPARISON: None FINDINGS: TUBES and LINES: Left-sided PICC terminates in the expected location of the left brachiocephalic vein. LUNGS: Lungs are moderately inflated. Mild central vascular congestion without evidence of pulmonary edema. PLEURA: No pleural effusion or pneumothorax. HEART AND MEDIASTINUM: The cardiomediastinal silhouette is unremarkable. BONES AND SOFT TISSUES: No acute osseous lesion. Status post median sternotomy. UPPER ABDOMEN: No free air under the diaphragm. IMPRESSION: Left-sided PICC terminates in the expected location of the left brachiocephalic vein. Consider advancement by approximately 4 cm. No evidence of pneumothorax. Above findings discussed with PICC team in person on 12/14/2018 at 1445. Signed by: Dr. Javon Buck MD on 12/14/2018 3:03 PM
--- NOTE | 2018-12-14 15:10 | NUR ---
PATIENT'S SISTER RODRIGO BASILIO NOTIFIED THAT PATIENT IS GOING BACK TO [facility] TODAY. Addendum: 12/14/18 at 1734 by BRINA LANDIS RN WRONG ENTRY
--- NOTE | 2018-12-14 15:10 | Diagnostic Imaging Report ---
EXAMINATION: CHEST XRAY LINE PLACEMENT INDICATION: PICC line placement COMPARISON: Chest radiograph 12/14/18 at 1432. FINDINGS: TUBES and LINES: Left-sided PICC has been slightly advanced and terminates in the expected location of the left brachiocephalic vein. LUNGS: Lungs are moderately inflated. Mild central vascular congestion without evidence of pulmonary edema or consolidation. PLEURA: No pleural effusion or pneumothorax. HEART AND MEDIASTINUM: The cardiomediastinal silhouette is unremarkable. BONES AND SOFT TISSUES: No acute osseous lesion. Status post median sternotomy. UPPER ABDOMEN: No free air under the diaphragm. IMPRESSION: Left-sided PICC has been slightly advanced and terminates in the expected location of the left brachiocephalic vein. Recommend advancement by at least 4 cm. No evidence of pneumothorax. Above findings discussed with PICC team in person on 12/14/2018 at 3:04 PM. Signed by: Dr. Javon Buck MD on 12/14/2018 3:06 PM
--- NOTE | 2018-12-14 16:17 | Diagnostic Imaging Report ---
EXAMINATION: CHEST SINGLE (PORTABLE) INDICATION: PICC line placement COMPARISON: Chest radiograph 12/14/18 at 1456. FINDINGS: TUBES and LINES: Left-sided PICC has been advanced and terminates near the expected position of the cavoatrial junction. LUNGS: Lungs are moderately inflated. No evidence of pneumonia or pulmonary edema. PLEURA: No pleural effusion or pneumothorax. HEART AND MEDIASTINUM: The cardiomediastinal silhouette is unremarkable. BONES AND SOFT TISSUES: No acute osseous lesion. Status post median sternotomy. UPPER ABDOMEN: No free air under the diaphragm. IMPRESSION: Left-sided PICC has been advanced and now terminates near the cavoatrial junction. No evidence of pneumothorax. Signed by: Dr. Javon Buck MD on 12/14/2018 4:13 PM
[2018-12-14] MEDS: COLLAGENASE 5 GM TUBE TOP SCH (17:33)
--- NOTE | 2018-12-14 17:34 | NUR ---
WOUND CARE COMPLETED AT THIS TIME.
[2018-12-14] MEDS ORDERED: CEFTRIAXONE SOD 2 GM/NS 100 ML 100 ML IV SCH (18:30)
[2018-12-14] MEDS ORDERED: VANCOMYCIN 750MG/NS 150ML IVPB 250 ML IV SCH (18:30)
--- NOTE | 2018-12-14 18:52 | NUR ---
PAGED DR. CUTLER TO CLARIFY VANCOMYCIN ORDER.
--- NOTE | 2018-12-14 19:00 | NUR ---
REPORT GIVEN TO ONCOMING NURSE. PATIENT IS RESTING IN BED, NO ACUTE DISTRESS NOTED. CALL LIGHT WITHIN REACH. BED IN THE LOWEST POSITION.
--- NOTE | 2018-12-14 19:08 | NUR ---
PT IS RESTING IN BED. NO RESPIRATORY DISTRESS NOTED. BED IN LOWEST POSITION, LOCKED, AND CALL LIGHT WITHIN REACH. WILL CONTINUE TO MONITOR.
[2018-12-14] MEDS ORDERED: VANCOMYCIN 750MG/NS 150ML IVPB 150 ML IV SCH (20:00)
--- NOTE | 2018-12-14 20:10 | NUR ---
PER DR CUTLER START VANCOMYCIN 750MG Q24 TOMORROW, VANC TROUGH BEFORE THIRD DOSE, AND HOLD IN VANC TROUGH IS GREATER THAN 20. WILL CONTINUE TO MONITOR.
[2018-12-14] MEDS: METOPROLOL SUCCINATE 25 MG TAB XL PO SCH (20:58)
--- NOTE | 2018-12-14 21:39 | Consultation ---
DATE OF CONSULTATION: REASON FOR CONSULTATION: Left foot infection, osteomyelitis. HISTORY: This is a 68-year-old gentleman with history of diabetes mellitus, history of atherosclerotic disease, history of peripheral vascular disease, history of neuropathy. He has been seen by Dr. Corrigan for sometime. He does have history of right foot infection, osteomyelitis. For the last 6 weeks, it was noted in the left foot. He has an ulcer which is getting progressively worse, on oral antibiotic. The patient does not recall history of trauma or anything. The patient has been taking oral antibiotic as an outpatient without any improvement, so he came to the hospital. In the hospital, he was admitted, underwent workup. Podiatry consulted. Infectious disease was asked to see him today. There are plans for him to go to an LTAC. The patient who is lying in bed comfortably and has no complaints. PAST MEDICAL HISTORY: Diabetes mellitus, on insulin; hyperlipidemia; neuropathy; kidney stone before; coronary artery disease. He also has history of hypertension. PAST SURGICAL HISTORY: CABG, multiple stents to lower extremities, right second toe amputation, coronary artery stent placement and graft placement, peripheral vascular disease, stent placement. SOCIAL HISTORY: There is no smoking, drug abuse, or alcohol abuse. FAMILY HISTORY: Diabetes mellitus. REVIEW OF SYSTEMS: HEENT: Negative. PULMONARY: Negative. CARDIAC: Negative. : Negative. All within normal limits. MEDICATIONS: He is currently on Zosyn and vancomycin. LABORATORY DATA: White count 8.3, hemoglobin 11.7. Sodium 138, potassium 4.6, his creatinine 1.89. His vancomycin was 9.9. The patient had an MRI of his foot on November, which showed osteomyelitis of the head of the fifth metatarsal bone. PHYSICAL EXAMINATION: GENERAL: He is currently alert and oriented, does not seem to be in acute distress. VITAL SIGNS: Stable, currently afebrile. HEENT: He does not appear icteric. NECK: Supple. CHEST: Clear. HEART: No murmur. ABDOMEN: Soft. Bowel sounds present. No tenderness. EXTREMITIES: No edema. In the foot, there is an ulcer noted at the base of his left second toe. Pulse was weak. There was no drainage at present time. The wound is about 1.5 cm in diameter. IMPRESSION: 1. Osteomyelitis of the left foot affecting the head of the fifth metatarsal. 2. Chronic kidney disease. 3. Diabetes mellitus. From infectious disease point of view, he is currently on Zosyn and vancomycin. I will suggest to discontinue Zosyn since I am concerned that chronic kidney disease and diabetes in addition to vancomycin it can aggravate his kidney function. I will suggest to put him on Rocephin 2 g daily, vancomycin 1 g daily. Follow sed rate, C-reactive protein. Will follow patient closely. Wound care. Vascular workup if not done recently. Will follow. Job#: [id number]
[2018-12-15] VITALS (7 sets, daily range): BP systolic 108–123; BP diastolic 51–65
[2018-12-15] MEDS: TRESIBA SC SCH (08:56)
[2018-12-15] MEDS: ASPIRIN 81 MG CHEW TAB PO SCH (08:56)
[2018-12-15] MEDS: DOXYCYCLINE HYCLATE TABLET 100 MG TAB PO SCH (08:56)
[2018-12-15] MEDS: ATORVASTATIN 40 MG TAB PO SCH (08:56)
[2018-12-15] MEDS: BUMETANIDE 1 MG TAB PO SCH ×2 (08:56→17:44)
[2018-12-15] MEDS: LOSARTAN POTASSIUM 25 MG TAB PO SCH (08:56)
[2018-12-15] MEDS: GLIPIZIDE 5 MG TAB ER PO SCH (08:56)
[2018-12-15] MEDS: SPIRONOLACTONE 25 MG TAB PO SCH ×2 (08:56→17:44)
[2018-12-15] MEDS: INSULIN LISPRO 100 UNIT/1 ML 3ML VIAL SQ SCH ×4 (08:58→21:00)
[2018-12-15] MEDS: AMMONIUM LACTATE 12% LOTION 225GM BTL TOP SCH ×2 (09:56→17:44)
[2018-12-15] MEDS: COLLAGENASE 5 GM TUBE TOP SCH (09:56)
[2018-12-15] MEDS: VANCOMYCIN 750MG/NS 150ML IVPB 150 ML IV SCH (10:48)
[2018-12-15] MEDS: CEFEPIME 1GM/NS 0.9% 50 ML 50 ML IV SCH (12:38)
--- NOTE | 2018-12-15 19:00 | NUR ---
Bedside rounds completed with morning nurse. Pt alert to name. Lying supine in bed talking with visitor. No distress noted. Call mccauley within reach. Will continue to monitor.
[2018-12-15] MEDS: METOPROLOL SUCCINATE 25 MG TAB XL PO SCH (21:00)
[2018-12-16] VITALS (7 sets, daily range): BP systolic 99–125; BP diastolic 54–74
--- NOTE | 2018-12-16 07:35 | NUR ---
PT UP IN BED AWAKE ,DENIES PAINDRSG CD&I
[2018-12-16] MEDS: INSULIN LISPRO 100 UNIT/1 ML 3ML VIAL SQ SCH ×4 (08:30→21:39)
--- NOTE | 2018-12-16 08:30 | NUR ---
DR HERNANDEZ HERE ELOY CHANGED
[2018-12-16] MEDS: SPIRONOLACTONE 25 MG TAB PO SCH ×2 (09:00→17:35)
[2018-12-16] MEDS: ATORVASTATIN 40 MG TAB PO SCH (09:00)
[2018-12-16] MEDS: GLIPIZIDE 5 MG TAB ER PO SCH (09:00)
[2018-12-16] MEDS: BUMETANIDE 1 MG TAB PO SCH ×2 (09:00→17:30)
[2018-12-16] MEDS ORDERED: CEFEPIME HCL 1 GM VIAL IV SCH (09:00)
[2018-12-16] MEDS: AMMONIUM LACTATE 12% LOTION 225GM BTL TOP SCH ×2 (09:00→17:00)
[2018-12-16] MEDS: ASPIRIN 81 MG CHEW TAB PO SCH (09:00)
[2018-12-16] MEDS: TRESIBA SC SCH (09:00)
[2018-12-16] MEDS: VANCOMYCIN 750MG/NS 150ML IVPB 150 ML IV SCH (10:30)
[2018-12-16] MEDS: LOSARTAN POTASSIUM 25 MG TAB PO SCH (11:09)
[2018-12-16] MEDS: COLLAGENASE 5 GM TUBE TOP SCH (11:12)
[2018-12-16] MEDS: CEFEPIME 1GM/NS 0.9% 50 ML 50 ML IV SCH (12:00)
--- NOTE | 2018-12-16 18:35 | NUR ---
pt in bed resting no distress noted,denies pain
--- NOTE | 2018-12-16 19:05 | NUR ---
Bedside rounds completed with morning nurse. Pt alert to name. Lying in bed HOB 30 degrees talking with visitor. No distress noted. Call mccauley within reach. Will continue to monitor.
[2018-12-16] MEDS: METOPROLOL SUCCINATE 25 MG TAB XL PO SCH (21:38)
[2018-12-17] VITALS (7 sets, daily range): BP systolic 91–124; BP diastolic 50–74
[2018-12-17] MEDS: INSULIN LISPRO 100 UNIT/1 ML 3ML VIAL SQ SCH ×3 (07:50→16:07)
[2018-12-17] MEDS: GLIPIZIDE 5 MG TAB ER PO SCH (08:41)
[2018-12-17] MEDS: ASPIRIN 81 MG CHEW TAB PO SCH (08:41)
[2018-12-17] MEDS: SPIRONOLACTONE 25 MG TAB PO SCH ×2 (08:41→16:18)
[2018-12-17] MEDS: TRESIBA SC SCH (08:41)
[2018-12-17] MEDS: BUMETANIDE 1 MG TAB PO SCH ×2 (08:41→16:18)
[2018-12-17] MEDS: ATORVASTATIN 40 MG TAB PO SCH (08:41)
[2018-12-17] MEDS: LOSARTAN POTASSIUM 25 MG TAB PO SCH (08:42)
--- NOTE | 2018-12-17 09:28 | NUR ---
REC'D DENIAL YESTERDAY EVENING FOR LTAC TAMARA WITH [facility] STATES THAT DR HERNANDEZ IS DOING PEER TO PEER TODAY DR SULLIVAN NOTIFIED WILL SPEAK WITH PT AND FAMILY FOR NEXT PLAN (SNF)
--- NOTE | 2018-12-17 10:09 | Progress Note ---
DATE: December 17, 2018 SUBJECTIVE: No new complaints. Resting comfortably. OBJECTIVE VITAL SIGNS: Stable. He is afebrile. HEENT: Normocephalic and atraumatic. ABDOMEN: Soft, nontender and nondistended. RESPIRATORY: Symmetrical expansion. PSYCHIATRIC: Normal affect. EXTREMITIES: Ulcerative lesion on the plantar lateral aspect of the right foot, sub 5th metatarsal head region, stabilized. Seems to be better. Seems that inpatient management optimizes in this particular patient's situation healing. The lesion itself begins to show some evidence of granular tissue. Most of it is still a combination of necrotic and fibrotic tissue. Conchita-site erythema has decreased. There is no soft tissue crepitus. No active drainage. ASSESSMENT 1. Diabetic patient with chronic nonhealing diabetic ulceration, left foot. 2. Osteomyelitis, left foot, 5th metatarsal head. 3. Morbid obesity. PLAN: Recommend and still persistent LTAC management of the same to include continued local wound care to include hyperbaric oxygen treatment and to include continued IV antibiotics as per underlying osteomyelitis. This optimizes the patient's healing and ultimately prevent further complications and perhaps prevent amputations or more invasive procedures from recurring. The patient will still be followed up on. Job#: [id number] ALFONSO
[2018-12-17] MEDS: VANCOMYCIN 750MG/NS 150ML IVPB 150 ML IV SCH (10:35)
[2018-12-17] MEDS: COLLAGENASE 5 GM TUBE TOP SCH (11:09)
[2018-12-17] MEDS: AMMONIUM LACTATE 12% LOTION 225GM BTL TOP SCH ×2 (11:09→16:16)
[2018-12-17] MEDS: CEFEPIME 1GM/NS 0.9% 50 ML 50 ML IV SCH (11:34)
--- NOTE | 2018-12-17 16:22 | NUR ---
PEER TO PEER SUCCESSFUL PER TAMARA WITH [facility] WILL CALL MOT TO FLOOR MOT IN PACKET AND COMPLETED NURSE ROHIT NOTIFIED
--- NOTE | 2018-12-17 19:16 | NUR ---
PT IS RESTING IN BED. NO RESPIRATORY DISTRESS NOTED. BED IN LOWEST POSITION, LOCKED, AND CALL LIGHT WITHIN REACH. WILL CONTINUE TO MONITOR.
--- NOTE | 2018-12-17 21:22 | NUR ---
PT LEFT WITH EMS VIA STRETCHER AT 2030 WITH ALL OF HIS BELONGS. NO RESPIRATORY DISTRESS NOTED.
--- NOTE | 2018-12-18 14:14 | Discharge Summary ---
PRIMARY CARE PROVIDER: Dr. Chelly Mims. COST ESTIMATING MANAGER: Dr. Nima Corrigan. FINAL DIAGNOSES 1. Left infected diabetic foot ulcer associated with osteomyelitis of the fifth metatarsal bone. 2. Baseline uncontrolled diabetes type 2, on multiple medications including oral and insulin. 3. Morbid obesity. 4. Baseline coronary disease with previous stent, coronary artery bypass surgery. 5. Right 2nd toe amputation. 6. Peripheral vascular disease. 7. Diabetes type 2. 8. Dyslipidemia. 9. Chronic anemia. SUMMARY: Patient is a 68-year-old male who was transferred to [facility] today. Continue with IV antibiotics, IV cefepime and vancomycin. Patient has also left foot osteomyelitis associated with ulcer and infected diabetic foot ulcer, had been going on outpatient failed treatment. Patient is nonweightbearing to the left foot. Baseline with coronary disease with previous stent and subsequent coronary artery bypass surgery and also peripheral vascular disease. He had a right 2nd toe amputation previously due to diabetic infected foot ulcer. The patient required IV antibiotic. The patient has a left upper extremity PICC line in place. He is transferring to [facility] for continue with IV antibiotics for osteomyelitis, physical therapy with nonweightbearing to the left foot, and also with wound care. Dr. Nima Corrigan will continue to follow the patient. At this time, the patient stable. He was transferred to [facility] and continue to monitor the patient and care for the patient at that facility. Job#: [id number] ADELE
== END 2018-12-17 20:31 | DRG 638 ==
LOC: ER 17:12 → ERHOLD 20:27 → MED/SURG3 12-11 00:01 → OBSVTOIN 12-11 10:06 → INTOOBSV 12-11 10:06
PROVIDERS: ADMIT Internal Medicine; ATTEND Internal Medicine
PROC: 02HV33Z Insertion of Infusion Device into Superior Vena Cava, Percutaneous Approach (ICD-10-PCS; principal; 2018-12-11)
DX: E11.69 Type 2 diabetes mellitus with other specified complication (principal); Z68.41 Body mass index [BMI] 40.0-44.9, adult; M86.8X7 Other osteomyelitis, ankle and foot; Z79.4 Long term (current) use of insulin; E11.65 Type 2 diabetes mellitus with hyperglycemia; E11.51 Type 2 diabetes mellitus with diabetic peripheral angiopathy without gangrene; E66.01 Morbid (severe) obesity due to excess calories; D63.8 Anemia in other chronic diseases classified elsewhere; I25.10 Atherosclerotic heart disease of native coronary artery without angina pectoris; Z95.1 Presence of aortocoronary bypass graft; Z95.820 Peripheral vascular angioplasty status with implants and grafts; E11.22 Type 2 diabetes mellitus with diabetic chronic kidney disease; I12.9 Hypertensive chronic kidney disease with stage 1 through stage 4 chronic kidney disease, or unspecified chronic kidney disease; N18.2 Chronic kidney disease, stage 2 (mild)
CPT/HCPCS: 36415; 36569; 71045; 74470; 80048; 80053; 80202; 82948; 83036; 85025; 85610; 85651; 93925; 97139; 99284; G0378; J0692; J0696; J2543; J7050

== ENCOUNTER → 2019-03-16 | Outpatient (CLI) | payer MEDICARE ==
[~2019-03-16] MED LIST: ASPIR 8181 MG PO; ATORVASTATIN CA40 MG PO; BUMETANIDE1 MG PO; GLIPIZIDE ER5 MG PO; LISINOPRIL5 MG PO; METOPROLOL SUCC25 MG PO; SPIRONOLACTONE25 MG PO; TRESIBA SC
== END ==
LOC: RAD 09:08
PROVIDERS: ATTEND Family Medicine Adult Medicine
DX: I87.2 Venous insufficiency (chronic) (peripheral) (principal)
CPT/HCPCS: 93970

== ENCOUNTER 2019-03-17 11:29 | Outpatient (RCR) | payer MEDICARE ==
[~2019-03-17 11:29] MED LIST changes: +LIDOCAINE/PRILOCAINE 2.5-2.5% KIT ONE; +MINERAL OIL/PETROLAT/GLYCERI 2OZ CRM ONE
[2019-03-17] MEDS ORDERED: LIDOCAINE/PRILOCAINE 2.5-2.5% KIT ONE (18:06)
[2019-03-17] MEDS ORDERED: AMMONIUM LACTATE 12% LOTION 225GM BTL ONE (18:06)
== END 2019-03-22 ==
LOC: WCC 11:29
PROVIDERS: ATTEND Family Medicine Adult Medicine
DX: E11.621 Type 2 diabetes mellitus with foot ulcer (principal); E11.22 Type 2 diabetes mellitus with diabetic chronic kidney disease; E11.40 Type 2 diabetes mellitus with diabetic neuropathy, unspecified; E11.65 Type 2 diabetes mellitus with hyperglycemia; M86.8X7 Other osteomyelitis, ankle and foot; L97.529 Non-pressure chronic ulcer of other part of left foot with unspecified severity; L97.519 Non-pressure chronic ulcer of other part of right foot with unspecified severity; L97.419 Non-pressure chronic ulcer of right heel and midfoot with unspecified severity; R60.9 Edema, unspecified; I87.2 Venous insufficiency (chronic) (peripheral); L84 Corns and callosities; N18.3 Chronic kidney disease, stage 3 (moderate); I10 Essential (primary) hypertension; D64.9 Anemia, unspecified; E66.01 Morbid (severe) obesity due to excess calories; E78.5 Hyperlipidemia, unspecified; I50.20 Unspecified systolic (congestive) heart failure
CPT/HCPCS: 87071; 87075; 87186; 87205

== ENCOUNTER → 2019-03-24 | Outpatient (CLI) | payer MEDICARE ==
[~2019-03-24] MED LIST changes: -LIDOCAINE/PRILOCAINE 2.5-2.5% KIT ONE; -MINERAL OIL/PETROLAT/GLYCERI 2OZ CRM ONE
[2019-03-24 10:05] LABS: INR 0.95; PROTHROMBIN TIME 13.2 seconds (11.9-14.5)
[2019-03-24 10:06] LABS: PARTIAL THROMBOPLASTIN TIME 30.9 seconds (23.8-35.5)
[2019-03-24 10:09] LABS: CREATININE, SERUM 1.56 mg/dL (0.72-1.25)
--- NOTE | 2019-03-24 11:54 | Diagnostic Imaging Report ---
EXAMINATION: CHEST XRAY LINE PLACEMENT INDICATION: PICC placement COMPARISON: Chest radiograph 12/14/2018. FINDINGS: TUBES and LINES: Left-sided PICC terminates at the expected position of the cavoatrial junction. LUNGS: Lungs are not well inflated. Patchy left basilar opacity. No evidence of pulmonary edema. PLEURA: No pleural effusion or pneumothorax. HEART AND MEDIASTINUM: The cardiomediastinal silhouette is mildly enlarged, accentuated by portable technique. BONES AND SOFT TISSUES: No acute osseous abnormality. Status post median sternotomy. UPPER ABDOMEN: No free air under the diaphragm. IMPRESSION: Left-sided PICC terminates at the expected position of the cavoatrial junction. No evidence of pneumothorax. Patchy left basilar opacity, more likely atelectasis than pneumonia. This can be correlated with clinical history. Signed by: Dr. Javon Buck MD on 03/24/2019 11:51 AM
== END ==
LOC: DX 09:12
PROVIDERS: ATTEND Internal Medicine Infectious Disease
DX: M86.672 Other chronic osteomyelitis, left ankle and foot (principal)
CPT/HCPCS: 36415; 36569; 71045; 82565; 84520; 85049; 85610; 85730

== ENCOUNTER 2019-04-20 11:53 | Outpatient (RCR) | payer MEDICARE ==
[~2019-04-20 11:53] MED LIST changes: +LIDOCAINE VISC 2% SOLN 15 ML UDC ONE; +LIDOCAINE/PRILOCAINE 2.5-2.5% KIT ONE; +MINERAL OIL/PETROLAT/GLYCERI 2OZ CRM ONE; +MINERAL OIL/PETROLAT/GLYCERI 6OZ BTL ONE
[2019-04-20] MEDS ORDERED: MINERAL OIL/PETROLAT/GLYCERI 6OZ BTL ONE (18:37)
[2019-04-20] MEDS ORDERED: SILVER NITRATE SWABS ONE (18:37)
== END 2019-04-22 ==
LOC: WCC 11:53
PROVIDERS: ATTEND Family Medicine
DX: E11.621 Type 2 diabetes mellitus with foot ulcer (principal); E11.22 Type 2 diabetes mellitus with diabetic chronic kidney disease; E11.40 Type 2 diabetes mellitus with diabetic neuropathy, unspecified; E11.65 Type 2 diabetes mellitus with hyperglycemia; M86.8X7 Other osteomyelitis, ankle and foot; L97.529 Non-pressure chronic ulcer of other part of left foot with unspecified severity; L97.519 Non-pressure chronic ulcer of other part of right foot with unspecified severity; L97.419 Non-pressure chronic ulcer of right heel and midfoot with unspecified severity; I87.2 Venous insufficiency (chronic) (peripheral); R60.9 Edema, unspecified; L84 Corns and callosities; D64.9 Anemia, unspecified; N18.3 Chronic kidney disease, stage 3 (moderate); I10 Essential (primary) hypertension; I50.20 Unspecified systolic (congestive) heart failure; E78.5 Hyperlipidemia, unspecified; E66.01 Morbid (severe) obesity due to excess calories
CPT/HCPCS: 36415; 82948

== ENCOUNTER 2019-05-20 11:45 | Outpatient (RCR) | payer MEDICARE ==
[2019-04-27 14:11] LABS: BASOPHILS % 0.3 % (0.0-1.0); EOSINOPHILS # (AUTO) 0.2 (0.0-0.4); EOSINOPHILS % 3.5 % (0.0-6.0); HEMATOCRIT 33.1 % (38.2-49.6); HEMOGLOBIN 10.9 g/dL (14.0-18.0); LYMPHOCYTES # (AUTO) 1.9 (1.0-3.2); LYMPHOCYTES % 30.8 % (18.0-39.1); MEAN CORPUSCULAR HGB CONC 32.9 g/dL (31-35); MEAN CORPUSCULAR VOLUME 91.2 fL (81-99); MONOCYTES # (AUTO) 0.5 (0.2-0.8); MONOCYTES % 7.7 % (4.4-11.3); NEUTROPHILS # (AUTO) 3.5 (2.1-6.9); NEUTROPHILS % 57.5 % (38.7-80.0); PLATELET COUNT 140 x10e3/uL (140-360); RED BLOOD COUNT 3.63 x10e6/uL (4.3-5.7); RED CELL DISTRIBUTION WIDTH 14.6 % (11.7-14.4)
[2019-04-27 14:32] LABS: ALANINE AMINOTRANSFERASE 29 IU/L (0-55); ALBUMIN 3.1 g/dL (3.5-5.0); ALBUMIN/GLOBULIN RATIO 0.9 (0.8-2.0); ALKALINE PHOSPHATASE 99 IU/L (40-150); ANION GAP 11.5 mmol/L (8-16); BLOOD UREA NITROGEN 24 mg/dL (7-26); BUN/CREATININE RATIO 23 (6-25); CARBON DIOXIDE 25 mmol/L (22-29); CHLORIDE 106 mmol/L (98-107); CREATININE, SERUM 1.03 mg/dL (0.72-1.25); EST GLOMERULAR FILTRATION RATE > 60 ML/MIN (60-); GLUCOSE 138 mg/dL (74-118); POTASSIUM 3.5 mmol/L (3.5-5.1); SODIUM 139 mmol/L (136-145)
[~2019-05-20 11:45] MED LIST changes: -LIDOCAINE VISC 2% SOLN 15 ML UDC ONE; -MINERAL OIL/PETROLAT/GLYCERI 2OZ CRM ONE
== END 2019-05-22 ==
LOC: WCC 11:45
PROVIDERS: ATTEND Family Medicine Adult Medicine
DX: E11.621 Type 2 diabetes mellitus with foot ulcer (principal); E11.22 Type 2 diabetes mellitus with diabetic chronic kidney disease; E11.40 Type 2 diabetes mellitus with diabetic neuropathy, unspecified; E11.65 Type 2 diabetes mellitus with hyperglycemia; M86.8X7 Other osteomyelitis, ankle and foot; L97.529 Non-pressure chronic ulcer of other part of left foot with unspecified severity; L97.519 Non-pressure chronic ulcer of other part of right foot with unspecified severity; I87.2 Venous insufficiency (chronic) (peripheral); L84 Corns and callosities; R60.9 Edema, unspecified; N18.3 Chronic kidney disease, stage 3 (moderate); I10 Essential (primary) hypertension; I50.20 Unspecified systolic (congestive) heart failure; E78.5 Hyperlipidemia, unspecified; D64.9 Anemia, unspecified; E66.01 Morbid (severe) obesity due to excess calories
CPT/HCPCS: 11042 ×2; 15275; 29581 ×4; 36415 ×3; 80053; 82948 ×2; 83036; 84134; 85025; 85651; 86140; 87071; 87075; 87186; 87205; 99213 ×2; Q4186

== ENCOUNTER 2019-06-21 11:26 | Outpatient (RCR) | payer MEDICARE ==
[~2019-06-21 11:26] MED LIST changes: +SILVER SULFADIAZINE 50GM CREAM ONE
== END 2019-06-22 ==
LOC: WCC 11:26
PROVIDERS: ATTEND Family Medicine Adult Medicine
DX: E11.621 Type 2 diabetes mellitus with foot ulcer (principal); E11.22 Type 2 diabetes mellitus with diabetic chronic kidney disease; E11.40 Type 2 diabetes mellitus with diabetic neuropathy, unspecified; E11.65 Type 2 diabetes mellitus with hyperglycemia; L97.529 Non-pressure chronic ulcer of other part of left foot with unspecified severity; L97.519 Non-pressure chronic ulcer of other part of right foot with unspecified severity; R60.9 Edema, unspecified; N18.3 Chronic kidney disease, stage 3 (moderate); I10 Essential (primary) hypertension; I50.20 Unspecified systolic (congestive) heart failure; E78.5 Hyperlipidemia, unspecified; A49.01 Methicillin susceptible Staphylococcus aureus infection, unspecified site; B96.89 Other specified bacterial agents as the cause of diseases classified elsewhere; D64.9 Anemia, unspecified; E66.01 Morbid (severe) obesity due to excess calories; I83.11 Varicose veins of right lower extremity with inflammation; I87.2 Venous insufficiency (chronic) (peripheral); M86.8X7 Other osteomyelitis, ankle and foot
CPT/HCPCS: 11042 ×4; 15275; 29581 ×8; 36415; 82948; 87071; 87075; 87186; 87205; 99213 ×5; Q4186

== ENCOUNTER 2019-07-22 13:13 | Outpatient (RCR) | payer MEDICARE ==
[~2019-07-22 13:13] MED LIST changes: +MINERAL OIL/PETROLAT/GLYCERI 2OZ CRM ONE; -SILVER SULFADIAZINE 50GM CREAM ONE
[2019-07-22] MEDS ORDERED: MINERAL OIL/PETROLAT/GLYCERI 6OZ BTL ONE (18:34)
== END 2019-07-23 ==
LOC: WCC 13:13
PROVIDERS: ATTEND Family Medicine Adult Medicine
DX: E11.621 Type 2 diabetes mellitus with foot ulcer (principal); E11.65 Type 2 diabetes mellitus with hyperglycemia; E11.22 Type 2 diabetes mellitus with diabetic chronic kidney disease; E11.40 Type 2 diabetes mellitus with diabetic neuropathy, unspecified; M86.8X7 Other osteomyelitis, ankle and foot; L97.519 Non-pressure chronic ulcer of other part of right foot with unspecified severity; I87.2 Venous insufficiency (chronic) (peripheral); N18.3 Chronic kidney disease, stage 3 (moderate); I10 Essential (primary) hypertension; I50.20 Unspecified systolic (congestive) heart failure; E78.5 Hyperlipidemia, unspecified; E66.01 Morbid (severe) obesity due to excess calories; D64.9 Anemia, unspecified; X58.XXXA Exposure to other specified factors, initial encounter
CPT/HCPCS: 36415; 82948

== ENCOUNTER 2019-08-18 13:15 | Outpatient (RCR) | payer MEDICARE ==
[~2019-08-18 13:15] MED LIST changes: +LIDOCAINE VISC 2% SOLN 15 ML UDC ONE; +TRIAMCINOLONE ACET 0.1% CREAM 15 GM TUBE ONE
[2019-08-18] MEDS ORDERED: MINERAL OIL/PETROLAT/GLYCERI 6OZ BTL ONE (14:34)
== END 2019-08-22 ==
LOC: WCC 13:15
PROVIDERS: ATTEND Family Medicine Adult Medicine
DX: E11.621 Type 2 diabetes mellitus with foot ulcer (principal); E11.22 Type 2 diabetes mellitus with diabetic chronic kidney disease; E11.40 Type 2 diabetes mellitus with diabetic neuropathy, unspecified; E11.65 Type 2 diabetes mellitus with hyperglycemia; L89.302 Pressure ulcer of unspecified buttock, stage 2; L89.311 Pressure ulcer of right buttock, stage 1; M86.8X7 Other osteomyelitis, ankle and foot; L97.519 Non-pressure chronic ulcer of other part of right foot with unspecified severity; S51.802A Unspecified open wound of left forearm, initial encounter; I87.2 Venous insufficiency (chronic) (peripheral); R60.9 Edema, unspecified; N18.3 Chronic kidney disease, stage 3 (moderate); I10 Essential (primary) hypertension; E78.5 Hyperlipidemia, unspecified; I50.20 Unspecified systolic (congestive) heart failure; E66.01 Morbid (severe) obesity due to excess calories; D64.9 Anemia, unspecified
CPT/HCPCS: 11042; 15275 ×2; 29581 ×7; 36415 ×3; 82948 ×3; 99213 ×5; Q4186 ×2

== ENCOUNTER 2019-09-20 12:50 | Outpatient (RCR) | payer MEDICARE ==
[~2019-09-20 12:50] MED LIST changes: -LIDOCAINE VISC 2% SOLN 15 ML UDC ONE; -MINERAL OIL/PETROLAT/GLYCERI 2OZ CRM ONE; -TRIAMCINOLONE ACET 0.1% CREAM 15 GM TUBE ONE
[2019-09-20] MEDS ORDERED: MINERAL OIL/PETROLAT/GLYCERI 6OZ BTL ONE (15:18)
[2019-09-20] MEDS ORDERED: LIDOCAINE/PRILOCAINE 2.5-2.5% KIT ONE (15:18)
== END 2019-09-22 ==
LOC: WCC 12:50
PROVIDERS: ATTEND Family Medicine Adult Medicine
DX: E11.621 Type 2 diabetes mellitus with foot ulcer (principal); E11.22 Type 2 diabetes mellitus with diabetic chronic kidney disease; E11.65 Type 2 diabetes mellitus with hyperglycemia; E11.40 Type 2 diabetes mellitus with diabetic neuropathy, unspecified; M86.8X7 Other osteomyelitis, ankle and foot; L97.519 Non-pressure chronic ulcer of other part of right foot with unspecified severity; R60.9 Edema, unspecified; I87.2 Venous insufficiency (chronic) (peripheral); I89.0 Lymphedema, not elsewhere classified; I50.20 Unspecified systolic (congestive) heart failure; N18.3 Chronic kidney disease, stage 3 (moderate); I10 Essential (primary) hypertension; E66.01 Morbid (severe) obesity due to excess calories; E78.5 Hyperlipidemia, unspecified; D64.9 Anemia, unspecified; X58.XXXA Exposure to other specified factors, initial encounter; Z74.01 Bed confinement status
CPT/HCPCS: 15275 ×5; 29581 ×9; 36415 ×4; 82948 ×4; 99212; 99213 ×5; Q4186 ×5

== ENCOUNTER 2019-10-18 10:41 | Outpatient (RCR) | payer MEDICARE ==
[~2019-10-18 10:41] MED LIST changes: +LIDOCAINE VISC 2% SOLN 15 ML UDC ONE
[2019-10-18] MEDS ORDERED: MINERAL OIL/PETROLAT/GLYCERI 6OZ BTL ONE (14:57)
[2019-10-18] MEDS ORDERED: LIDOCAINE/PRILOCAINE 2.5-2.5% KIT ONE (14:57)
== END 2019-10-22 | disposition still patient (30) ==
LOC: WCC 10:41
PROVIDERS: ATTEND Family Medicine Adult Medicine
DX: E11.621 Type 2 diabetes mellitus with foot ulcer (principal); E11.40 Type 2 diabetes mellitus with diabetic neuropathy, unspecified; E11.65 Type 2 diabetes mellitus with hyperglycemia; E11.22 Type 2 diabetes mellitus with diabetic chronic kidney disease; M86.8X7 Other osteomyelitis, ankle and foot; L97.519 Non-pressure chronic ulcer of other part of right foot with unspecified severity; R60.9 Edema, unspecified; I89.0 Lymphedema, not elsewhere classified; I87.2 Venous insufficiency (chronic) (peripheral); N18.3 Chronic kidney disease, stage 3 (moderate); I10 Essential (primary) hypertension; I50.20 Unspecified systolic (congestive) heart failure; R78.5 Finding of other psychotropic drug in blood; E66.01 Morbid (severe) obesity due to excess calories; D64.9 Anemia, unspecified; X58.XXXA Exposure to other specified factors, initial encounter; Z74.01 Bed confinement status
CPT/HCPCS: 11042 ×2; 15275 ×2; 29581 ×8; 36415 ×5; 82948 ×5; 99213 ×4; Q4186 ×2